=== PATIENT | male | born 1940 | race Caucasian/White ===

== ENCOUNTER 2018-04-15 15:21 | Emergency (ER) | payer MEDICARE, OTHER ==
[~2018-04-15] VITALS: Ht 167.6 cm; Wt 83.2 kg
[~2018-04-15 15:21] MED LIST: ASCORBIC ACID500 MG PO; BYSTOLIC10 MG PO; CO Q-10200 MG PO; COUMADIN2.5 MG PO; EFFIENT10 MG PO; FISH OIL 1,2001 CAP PO; LIPITOR40 MG PO; LOVENOX40 MG/0.4 SC; LOVENOX80 MG/0.8 SC; MAG-OXIDE400 MG PO; OMEPRAZOLE40 MG PO; PEPCID20 MG PO; VITAMIN B-122500 MCG PO; VITAMIN C1000 MG PO; VITAMIN E400 UNI2 PO; ZETIA10 MG PO; ZYLOPRIM300 MG PO
[2018-04-15 15:37] VITALS: Ht 167.6 cm; Wt 83.2 kg
[2018-04-15] MEDS ORDERED: PLAVIX75 MG PO (15:41)
[2018-04-15] MEDS ORDERED: NORCO 7.5/325 T1 TA1 PO (19:38)
[2018-04-15 20:06] VITALS: BP 155/62
== END 2018-04-15 20:26 | disposition home or self-care (01) ==
LOC: D.ER 15:21
DX: S92.002A Unspecified fracture of left calcaneus, initial encounter for closed fracture (principal); W11.XXXA Fall on and from ladder, initial encounter; Y93.89 Activity, other specified; Y92.89 Other specified places as the place of occurrence of the external cause; I10 Essential (primary) hypertension; I50.9 Heart failure, unspecified; I25.810 Atherosclerosis of coronary artery bypass graft(s) without angina pectoris; K21.9 Gastro-esophageal reflux disease without esophagitis; F17.200 Nicotine dependence, unspecified, uncomplicated

== ENCOUNTER 2019-03-11 12:51 | Inpatient (IN) | payer MEDICARE, OTHER ==
[~2019-03-11] VITALS: Ht 167.6 cm; Wt 73.5 kg
[~2019-03-11 12:51] MED LIST changes: +NORCO 7.5/325 T1 TA1 PO; +PLAVIX75 MG PO; +VITAMIN B-122500 MCG; -VITAMIN B-122500 MCG PO
--- NOTE | 2019-03-11 13:16 | NUR ---
WALKED BY ROOM AND SEEN ADMISSIONS PLACING PATIENT IN ROOM. PATIENT ARRIVED BY WHEELCHAIR AND ADMITTED TO ROOM 2826.
[2019-03-11] MEDS ORDERED: ZINC-220220 MG PO (13:34)
[2019-03-11] MEDS ORDERED: NORVASC5 MG PO (13:41)
[2019-03-11 14:14] LABS: HEMATOCRIT 28.4 % (42.0-54.0); HEMOGLOBIN 9.8 g/dL (13.5-17.5)
[2019-03-11 14:32] LABS: INR 1.08 (0.85-1.17)
[2019-03-11 14:33] LABS: ALBUMIN 3.2 g/dL (3.4-5.0); ANION GAP 12.9 mmol/L (8-16); APTT 38.4 SECONDS (22.8-39.4); BILIRUBIN - TOTAL 0.47 mg/dL (0.2-1.3); CALCIUM 9.2 mg/dL (8.5-10.1); CARBON DIOXIDE 28.6 mmol/L (21.0-32.0); CREATININE - SERUM 1.5 mg/dL (0.6-1.3); POTASSIUM - SERUM 4.5 mmol/L (3.5-5.1); PROTEIN - SERUM 8.1 g/dL (6.4-8.2)
--- NOTE | 2019-03-11 14:42 | NUR ---
20 GAUGE IV PLACED TO LEFT HAND X 1 STICK. GOOD BLOOD RETURN, EASY FLUSH, TOLERATED IV PLACEMENT WELL. TAPED, DATED,AND SECURED. IV FLUIDS INFUSING ORDERED AT THIS TIME. NO DISTRESS.
[2019-03-11 15:26] VITALS: BP 155/73
[2019-03-11 15:54] VITALS: BP 151/66; BMI 25.8
--- NOTE | 2019-03-11 17:52 | NUR ---
CONSENTS SIGNED AND ON THE CHART FOR EGD IN AM.
--- NOTE | 2019-03-11 19:20 | NUR ---
BED IS LOW AND LOCKED IV RUNNINING. NS AT 75 AND PROTONIX GTT IS ALSO RUNNING.CALL LIGHT IS IN REACH ...LCTA SKIN WARM AND DRY BOWEL SOUNDS TIMES 2 AND PULSES ARE INTACT. IS ALSO AT BEDSIDE
[2019-03-11 20:08] LABS: APPEARANCE CLEAR (CLEAR); BILIRUBIN NEGATIVE (NEGATIVE); COLOR YELLOW (YELLOW); GLUCOSE NEGATIVE (NEGATIVE); KETONE NEGATIVE (NEGATIVE); NITRITE NEGATIVE (NEGATIVE); PROTEIN TRACE mg/dL (NEGATIVE); SPECIFIC GRAVITY 1.015 (1.005-1.020); UROBILINOGEN NORMAL (NORMAL)
[2019-03-11 21:27] VITALS: BP 149/65
[2019-03-11 21:56] LABS: HEMATOCRIT 27.8 % (42.0-54.0); HEMOGLOBIN 9.5 g/dL (13.5-17.5)
[2019-03-12 00:38] VITALS: BP 133/63
[2019-03-12 05:36] LABS: BASOPHILS 0.3 % (0-2); EOSINOPHILS 4.5 % (0-7); HEMATOCRIT 28.6 % (42.0-54.0); HEMOGLOBIN 9.6 g/dL (13.5-17.5); IMMATURE GRANULOCYTES 0.2 % (0-5); LYMPHOCYTES 16.1 % (15-50); MCHC 33.6 g/dL (31.0-37.0); MCV 89.4 fL (80.0-100.0); MEAN PLATELET VOLUME 9.3 fL (7.4-10.4); MONOCYTES 9.7 % (2-11); NEUTROPHILS 69.2 % (40-80); RDW 14.3 % (11.5-14.5); WBC 8.9 10x3/uL (4.8-10.8)
[2019-03-12 05:40] LABS: PLATELET COUNT 190 10x3/uL (130-400)
[2019-03-12 06:15] VITALS: BP 163/75
[2019-03-12 06:29] LABS: ALBUMIN 2.8 g/dL (3.4-5.0); BILIRUBIN - TOTAL 0.45 mg/dL (0.2-1.3); CALCIUM 8.9 mg/dL (8.5-10.1); CARBON DIOXIDE 27.5 mmol/L (21.0-32.0); CREATININE - SERUM 1.4 mg/dL (0.6-1.3); POTASSIUM - SERUM 4.5 mmol/L (3.5-5.1); PROTEIN - SERUM 7.6 g/dL (6.4-8.2)
--- NOTE | 2019-03-12 08:00 | NUR ---
AM ROUNDS COMPLETED. INTRODUCED MYSELF TO PT PRIMARY RN FOR TODAYS SHIFT. PT IS A&O SITTING UP IN BED RESTING QUIETLY. SHIFT ASSESSMENT COMPLETED. PT IS NPO FOR EGD LATER TODAY AND VERBALIZED UNDERSTANDING. PT HAS PROTONIX DRIP INFUSING @10ML/HR VIA L.HAND PIV ALONG WITH NS @75ML/HR. PT DENIES ANY CURRENT PAIN OR NEEDS AT THIS TIME AND IS JUST RESTING QUIETLY. PT STATES HE IS HOPING TO BE DISCHARGED AFTER PROCEDURE TODAY. WILL DISCUSS WITH PRIMARY AND CPOC.
[2019-03-12 08:03] VITALS: BP 143/64
--- NOTE | 2019-03-12 11:31 | NUR ---
PT STILL WAITING QUIETLY FOR PROCEDURE PT IS IN GOWN AND READY. NO CURRENT NEEDS. WILL CTM.
[2019-03-12 11:50] VITALS: BP 145/64
[2019-03-12 13:52] VITALS: Ht 167.6 cm; Wt 73.5 kg
[2019-03-12 14:28] LABS: HEMATOCRIT 29.3 % (42.0-54.0)
--- NOTE | 2019-03-12 14:40 | NUR ---
PT VERY AGITATED R/T BEING NPO AND NOT HAVING PROCEDURE YET. CALLED GI LAB TO CHECK ON POSSIBLE TIME AND THEY STATE WILL BE HERE AFTER 4PM. PT VOICED THANKS FOR THE UPDATE AND DENIES ANY CURRENT PAIN OR NEEDS AT THIS TIME. CL IN REACH. WILL CTM.
[2019-03-12 15:05] VITALS: BP 156/63
--- NOTE | 2019-03-12 16:07 | NUR ---
GI LAB CALLED TO PRE-OP PT. PRE-OP MEDICATIONS GIVEN ORDERED. PT IS READY TO GO AND VERY ANXIOUS TO GET IT OVER WITH AND STATES HE STILL HOPES TO BE DISCHARGED AFTERWARDS. NO FURTHER NEEDS AT THIS TIME. WILL CTM.
--- NOTE | 2019-03-12 17:00 | NUR ---
EKG PERFORMED ORDERED.
--- NOTE | 2019-03-12 17:59 | NUR ---
PT FINALLY LEAVING FOR PROCEDURE AT THIS TIME. WILL CTM.
--- NOTE | 2019-03-12 18:30 | NUR ---
PT BACK FROM PROCEDURE A&O AND READY TO GET DRESSED AND DISCHARGED. VSS AND WILL MONITER UNTIL DISCHARGE. AT BEDSIDE. NO CURRENT NEEDS.
[2019-03-12] MEDS ORDERED: CARAFATE1 G PO (18:41)
[2019-03-12] MEDS ORDERED: PROTONIX40 MG PO (18:41)
--- NOTE | 2019-03-12 18:43 | NUR ---
CALLED AND DISCUSSED FINDINGS WITH PTS AND MYSELF AND PT IS OKAY TO DISCHARGE WITH NEW MEDICATIONS. WILL CALL THEM INTO [facility] REQUESTED.
--- NOTE | 2019-03-12 19:14 | NUR ---
D/C PTS PIV WITH CATHETER TIP FULLY INTACT. DISCHARGE TEACHING PROVIDED AND PAPERS SIGNED. TELEMETRY RETURNED TO [employer]. ALL BELONGINGS COLLECTED. NO FURTHER NEEDS. PT LEAVING NOW.
--- NOTE | 2019-03-13 10:05 | MORECARE ---
CASE MANAGEMENT DISCHARGE SUMMARY PATIENT: APARNA ZAMORA UNIT: [id number] ADM DATE: 03/11/19 AGE: 78 : 41 SEX: M ROOM/BED: D.2136 AUTHOR: MARTY MCNEIL PHYSICIAN: REFERRING PHYSICIAN: GLORIA REZA DO DATE OF SERVICE: 03/13/19 Discharge Plan Patient Name: APARNA ZAMORA [facility] [facility] 1940 Planned Disposition: Home Anticipated Discharge Date: 03/12/19 Discharge Date: 03/12/2019 Expected LOS: 1 Initial Reviewer: [email or web address] Initial Review Date: 03/13/2019 Generated: 03/13/19 11:05 am Patient Name: APARNA ZAMORA Page [id number] at 1005 All edits/amendments must be made on the electronic document DICTATION DATE: 03/13/19 1004 INSURANCE PREMIUM AUDITOR: JACQUELINE 03/13/19 1004 RPT#: [id number] DC DATE:03/12/19 STATUS: DIS IN [facility] [address] [place] [address] END OF REPORT
--- NOTE | 2019-03-14 13:43 | HP ---
PATIENT: APARNA ZAMORA MEDICAL RECORD: [id number] ACCOUNT: [id number] LOCATION:[address] : [birth year] ADMISSION DATE: 03/11/19 PCP: GLORIA REZA DO HISTORY AND PHYSICAL EXAMINATION HISTORY OF PRESENT ILLNESS: A 78-year-old white male that comes in today not feeling well. He recently underwent coronary artery bypass grafting, was seen in followup about a week ago and noted to be slightly anemic at 10.9. It was unsure whether this was close to what he was discharged at. He did complain of some dark stools. Guaiac was slightly positive at that time. He comes in today for followup. He has continued to have some black tarry stools. He is now experiencing some upper abdominal pain and his hemoglobin has dropped to 10.3. Due to his recent CABG, I feel that this needs to be aggressively worked up. He spoke with Dr. Banegas, he is going to be admitted for further evaluation and probable EGD. 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 PAST SURGICAL HISTORY: Include a colonoscopy in 2015, stents in 2013 and 2014, had a valve replaced in 2012, had a bypass done in 2012, had another bypass done here recently in 2019. ALLERGIES OR INTOLERANCES: INCLUDE LIPITOR. HOME MEDICATIONS: Significant for allopurinol 300 mg a day, famotidine 20 mg at bedtime, Zetia 10 mg a day, Plavix 75 mg a day, pravastatin 20 mg a day, vitamin E and C, magnesium, garlic, a baby aspirin a day, D3, B12, fish oil, CoQ10, and cinnamon. He also takes nitroglycerin on a p.r.n. basis. FAMILY HISTORY: Significant for coronary disease. SOCIAL HISTORY: Significant for previous smoking history. REVIEW OF SYSTEMS: Significant for fatigue. He has a little bit of inspirational chest pain on the right. His chest x-ray in the office that day that showed a small pleural effusion in the posterior gutter. He is a little short of breath but not too much above baseline. He got some epigastric abdominal pain, dark black stools. Denies any dysuria. He had had some fatigue. No syncope. PHYSICAL EXAMINATION: GENERAL: He is in no acute distress at this time. He looks a little tired. HEENT: Sclerae nonicteric. Mucous membranes are moist. HEART: Regular. LUNGS: Clear. ABDOMEN: Soft. There is some epigastric tenderness. Healing incision in the anterior chest wall. EXTREMITIES: Lower extremities reveal minimal edema. IMPRESSION: 1. Suspect upper gastrointestinal bleed with drop in hemoglobin and hematocrit and black stools. 2. Previous esophagogastroduodenoscopy and colonoscopy in 2016. HISTORY AND PHYSICAL [id number] APARNA ZAMORA 3. Coronary artery disease with recent coronary artery bypass graft. 4. Hypertension. 5. History of atrial fibrillation, currently on aspirin and Plavix. 6. Gout. 7. Gastroesophageal reflux disease. 8. Hyperlipidemia. 9. Hypertension. PLAN: Called and discussed with Dr. Banegas. Clear liquids for now. Hold Plavix and aspirin. Started a PPI drip or a pantoprazole drip. Serial H&Hs, type and screen, probable EGD. See orders for rest of the plan. TRANSINT:[id number] Voice Confirmation ID: [id number] DOCUMENT ID: [id number] GLORIA REZA DO at 1343 CC: [id number] DICTATION DATE: 03/11/192127 AIRFIELD MANAGER: 03/11/19 2330 DIS IN 03/12/19 [id number] [place] [address]
== END 2019-03-12 19:15 | disposition home or self-care (01) | DRG 391 ==
LOC: D.SDCHOLD 12:51 → D.M2 13:04
PROVIDERS: Family Medicine Adult Medicine; Internal Medicine Gastroenterology; ADMIT Family Medicine; ATTEND Family Medicine
PROC: 0DB68ZX Excision of Stomach, Via Natural or Artificial Opening Endoscopic, Diagnostic (ICD-10-PCS; 2019-03-12)
PROC: 0DB58ZX Excision of Esophagus, Via Natural or Artificial Opening Endoscopic, Diagnostic (ICD-10-PCS; principal; 2019-03-12 18:00)
DX: K22.8 Other specified diseases of esophagus (principal); K25.4 Chronic or unspecified gastric ulcer with hemorrhage; K21.0 Gastro-esophageal reflux disease with esophagitis; D64.9 Anemia, unspecified; I25.10 Atherosclerotic heart disease of native coronary artery without angina pectoris; I10 Essential (primary) hypertension; E78.5 Hyperlipidemia, unspecified; K44.9 Diaphragmatic hernia without obstruction or gangrene; K22.2 Esophageal obstruction

== ENCOUNTER → 2019-03-25 09:26 | Outpatient (CLI) | payer MEDICARE, OTHER ==
[2019-03-12 13:52] VITALS: BMI 26.1
[~2019-03-25 09:26] MED LIST changes: +CARAFATE1 G PO; +NORVASC5 MG PO; +PROTONIX40 MG PO; +ZINC-220220 MG PO
== END | disposition home or self-care (01) ==
LOC: D.CT 09:26
PROVIDERS: ATTEND Internal Medicine Gastroenterology
DX: D00.1 Carcinoma in situ of esophagus (principal)

== ENCOUNTER 2019-04-01 11:10 | Day surgery (SDC) | payer MEDICARE, OTHER ==
[~2019-04-01] VITALS: Ht 167.6 cm; Wt 75.5 kg
[2019-04-01 11:43] LABS: BASOPHILS 0.3 % (0-2); HEMOGLOBIN 10.1 g/dL (13.5-17.5); IMMATURE GRANULOCYTES 0.3 % (0-5); LYMPHOCYTES 24.2 % (15-50); MCHC 33.7 g/dL (31.0-37.0); MEAN PLATELET VOLUME 9.1 fL (7.4-10.4); MONOCYTES 9.7 % (2-11); NEUTROPHILS 59.5 % (40-80); PLATELET COUNT 162 10x3/uL (130-400); RBC 3.37 10x6/uL (4.20-6.10); RDW 15.1 % (11.5-14.5); WBC 6.2 10x3/uL (4.8-10.8)
[2019-04-01 11:52] LABS: ANION GAP 11.2 mmol/L (8-16); CALCIUM 9.4 mg/dL (8.5-10.1); CARBON DIOXIDE 29.4 mmol/L (21.0-32.0); CREATININE - SERUM 1.4 mg/dL (0.6-1.3); POTASSIUM - SERUM 4.6 mmol/L (3.5-5.1)
[2019-04-01] MEDS ORDERED: BAYER CHEWABLE81 MG PO (12:25)
[2019-04-01 12:33] LABS: INR 1.1 (0.85-1.17); PROTIME 13.7 SECONDS (11.6-15.0)
[2019-04-01 13:06] VITALS: BP 153/69; Ht 167.6 cm; Wt 75.5 kg
--- NOTE | 2019-04-01 13:53 | NUR ---
1350 DR. CARRILLO INFORMED OF CR 1.4 WITH FLAG OF GIVING GENTAMICIN 80MG WITH CR > 1.3. STATES MAY GIVE GENTAMICIN 80MB IVPB PREOP. ALSO INFORMED OF HGB 10.0 & HCT 30.0. STATES THAT IS OKAY FOR PROCEDURE. Hailey SCHAEFFER R.N.
--- NOTE | 2019-04-01 17:46 | NUR ---
1700 DR. LORENA ARANGO, GIVES RESULTS. 1720 IV DC'D WITH CATH INTACT MEDS GIVEN PER EMAR PT STATES READY FOR RELEASE GETTING READY FOR RELEASE.
--- NOTE | 2019-04-06 14:09 | OP ---
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 PROCEDURE: Esophagogastroduodenoscopy with esophageal biopsies. SURGEON: Isidoro Carrillo MD RESIN REMOVER: None. BLOOD LOSS: About 75 cc. The risks, possible complications, and alternatives to the procedure were explained to the patient. He elects to proceed. The discussion specifically included, but was not limited to, bleeding requiring emergency reoperation, infection, endoscopic perforation. OPERATIVE COURSE: The patient was conveyed to the endoscopy suite electively on 04/01/2019. IV sedation was induced by the anesthesia staff. A bite block was inserted. A gastroscope was inserted into the mouth and was advanced easily into the hypopharynx. The esophagus was easily intubated as were the stomach and duodenum. The esophageal mass was firm and encompassed a third of the circumference of the esophagus and was located posteriorly. It was from 30 cm from the incisors to 35 cm from the incisors, so it is 5 cm in length. The stomach was easily intubated as was the duodenum. Upon withdrawal, retroflexed and angulus views were obtained. I then began to obtain numerous esophageal biopsies. The patient vomited some blood. We suctioned his mouth. He had some desaturations. I removed the gastroscope and we had to bag valve mask ventilate the patient in order to get the saturations up. Once the sats were in the 90s without ventilatory efforts on our part, I re-endoscoped the patient's esophagus to see if I could stop the bleeding with the argon plasma electronic scale tester. I began to utilize the argon plasma electronic scale tester with esophageal setting in the forced mode. There was a good bit of clotted blood overlying the area in question. The patient had another episode of vomiting blood and we decided to discontinue the procedure at that time. The patient required further bag valve mask ventilation and was able to be weaned off his oxygen and then transferred back to his room. TRANSINT:[id number] Voice Confirmation ID: [id number] DOCUMENT ID: [id number] ISIDORO CARRILLO MD at 1409 CC: ISHMAEL NAIDU MD and GLORIA REZA [id number] DICTATION DATE: 04/01/19 1642 CREDIT COLLECTOR: 04/01/19 1840 [facility] 04/01/19 [address] [place] [address]
--- NOTE | 2019-04-06 14:09 | HP ---
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 HISTORY OF PRESENT ILLNESS: The patient underwent EGD by Dr. Banegas. This revealed an esophageal biopsy, which reviewed minute squamous mucosa with at least squamous cell carcinoma in situ. A definite invasive neoplasm could not be determined due to the minute nature of the specimen. I have outlined with him the risks of the procedure as well as esophagectomy. He is willing to accept the risk of trying to undergo this procedure first to determine whether this esophageal neoplasm is invasive or not. I told him that if it is, then he would require an esophagectomy. 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 ALLERGIES: No known drug allergies. PHYSICAL EXAMINATION: GENERAL: The patient does not appear acutely ill. He does not appear chronically ill. VITAL SIGNS: Reviewed. EARS: He is hard of hearing. PSYCHIATRIC: Normal affect. NEUROLOGIC: Nonfocal except for hard of hearing. IMPRESSION: Carcinoma in situ of the esophagus. PLAN: EGD biopsies, possible endoscopic mucosal resection, possible treatment with the argon plasma inventory representative. TRANSINT:[id number] Voice Confirmation ID: [id number] DOCUMENT ID: [id number] ISIDORO CARRILLO MD at 1409 CC: ISHMAEL BANEGAS MD and GLORIA REZA [id number] DICTATION DATE: 04/01/19 1547 AGRISCIENCE TEACHER: 04/01/19 1559 [facility] 04/01/19 [id number] [place] [id number]
== END 2019-04-01 17:30 | disposition home or self-care (01) ==
LOC: D.OPS 11:10
PROVIDERS: Anesthesiology; ATTEND Surgery
DX: D12.5 Benign neoplasm of sigmoid colon (principal); D00.1 Carcinoma in situ of esophagus; Z95.2 Presence of prosthetic heart valve; K21.9 Gastro-esophageal reflux disease without esophagitis; Z86.73 Personal history of transient ischemic attack (TIA), and cerebral infarction without residual deficits; I10 Essential (primary) hypertension; I25.10 Atherosclerotic heart disease of native coronary artery without angina pectoris; Z01.812 Encounter for preprocedural laboratory examination

== ENCOUNTER 2019-04-18 10:32 | Day surgery (SDC) | payer MEDICARE, OTHER ==
[~2019-04-18] VITALS: Ht 167.6 cm; Wt 78.5 kg
[~2019-04-18 10:32] MED LIST changes: +BAYER CHEWABLE81 MG PO
[2019-04-18 10:59] LABS: BASOPHILS 0.1 % (0-2); EOSINOPHILS 0.2 % (0-7); HEMATOCRIT 31.4 % (42.0-54.0); HEMOGLOBIN 10.6 g/dL (13.5-17.5); IMMATURE GRANULOCYTES 0.2 % (0-5); LYMPHOCYTES 15.2 % (15-50); MCH 29.5 pg (26.0-34.0); MCHC 33.8 g/dL (31.0-37.0); MCV 87.5 fL (80.0-100.0); MEAN PLATELET VOLUME 9.8 fL (7.4-10.4); MONOCYTES 5.7 % (2-11); NEUTROPHILS 78.6 % (40-80); PLATELET COUNT 158 10x3/uL (130-400); RBC 3.59 10x6/uL (4.20-6.10); RDW 15.4 % (11.5-14.5); WBC 9.2 10x3/uL (4.8-10.8)
[2019-04-18 11:06] LABS: CARBON DIOXIDE 30.2 mmol/L (21.0-32.0); CREATININE - SERUM 1.2 mg/dL (0.6-1.3); POTASSIUM - SERUM 4.2 mmol/L (3.5-5.1)
[2019-04-18 11:45] VITALS: BP 153/62; Ht 167.6 cm; Wt 78.5 kg
[2019-04-18 11:51] LABS: INR 1.06 (0.85-1.17); PROTIME 13.3 SECONDS (11.6-15.0)
[2019-04-18 11:52] LABS: APTT 30.2 SECONDS (22.8-39.4)
--- NOTE | 2019-04-28 12:59 | OP ---
PATIENT NAME: APARNA ZAMORA MEDICAL RECORD: [id number] :42 LOCATION:D.OPS ADMISSION DATE: SURGEON: LOW CARRILLO MD DATE OF OPERATION: 04/18/2019 PREOPERATIVE DIAGNOSIS: Squamous cell carcinoma of the esophagus. POSTOPERATIVE DIAGNOSIS: Squamous cell carcinoma of the esophagus. PROCEDURES: 1. Esophagogastroduodenoscopy with endoscopic placement of a partially covered esophageal stent under fluoroscopy. 2. Immediate surgeon interpretation of the fluoroscopic images. SURGEON: Low Carrillo MD ROLL OUT MANAGER: None. BLOOD LOSS: Minimal. ANESTHESIA: General. COMPLICATIONS: None. Attending radiologist was present for this procedure. Static fluoroscopic images were obtained. These are kept in the PACS system. The surgeon interpretation of the radiographic images is dictated within the body of this operative note. The risks, possible complications, and alternatives to the procedure were explained to the patient. He elects to proceed. The discussion specifically included, but was not limited to, bleeding requiring emergency reoperation, stent migration, and hematemesis. OPERATIVE COURSE: The patient was conveyed to the operating room electively on 04/18/2019. General anesthesia was induced by the anesthesia staff. A bite block was inserted. A gastroscope was inserted into the mouth. It was advanced easily into the hypopharynx. The esophagus was easily intubated as were the stomach and duodenum. Upon withdrawal, retroflexed and angulus views were obtained. I then advanced into the duodenum. Under fluoroscopy, I advanced a 0.035 Jagwire. This was visualized under fluoroscopy, I was able to get it to advance this all the way down into the jejunum. I then withdrew the gastroscope over the Jagwire. Upon withdrawal, I marked the patient's skin at the proximal and distal extent of the carcinoma. I marked this with metallic clips. I then continued withdrawal of the gastroscope over the Jagwire without dislodging the Jagwire. I then loaded a well-lubricated partially covered esophageal stent on the Jagwire. This was advanced under fluoroscopy and then deployed. I was very satisfied with the deployment. It appeared that the covered portion of the stent covered the carcinoma very nicely. I was very OPERATIVE REPORT [id number] APARNA ZAMORA pleased with the proximal and distal targets for the uncovered portion of the stent. I re-endoscoped the patient's esophagus and stomach. I then withdrew the gastroscope without dislodging the stent. The stent is in place in order to help prevent dysphagia should there be either a radiation stricture or a continued growth of the malignancy where it causes near or partial obstruction of the esophagus. Additionally, the covered portion of the stent will aid in targeting the radiation as this is not an EG junction malignancy nor is a very proximal malignancy. The patient was then extubated and conveyed to the post-anesthesia care unit. A subsequent KUB was somewhat worrisome for some distal migration of the stent already. PLAN: I will plan on getting a KUB in a week or two to see us if there has been an interval development of any migration. TRANSINT:[id number] Voice Confirmation ID: [id number] DOCUMENT ID: [id number] LOW CARRILLO MD at 1259 CC: TU HASSAN [id number] DICTATION DATE: 04/26/19 1700 OPERATIONS AND INTELLIGENCE ASSISTANT: 04/26/192108 [facility] 04/18/19 [facility] [address] [place] [address]
== END 2019-04-18 16:11 | disposition home or self-care (01) ==
LOC: D.OPS 10:32 → D.PAN 13:00 → D.OPS 16:11
PROVIDERS: Anesthesiology; ATTEND Surgery
DX: C15.9 Malignant neoplasm of esophagus, unspecified (principal)

== ENCOUNTER → 2019-04-24 15:13 | Outpatient (CLI) | payer MEDICARE, OTHER ==
[2019-04-18 11:45] VITALS: BMI 27.9
== END | disposition home or self-care (01) ==
LOC: D.RAD 15:13
PROVIDERS: ATTEND Surgery
DX: D00.1 Carcinoma in situ of esophagus (principal)

== ENCOUNTER 2019-04-29 10:29 | Day surgery (SDC) | payer MEDICARE, OTHER ==
[2019-04-29 10:47] LABS: BASOPHILS 0.3 % (0-2); EOSINOPHILS 3.3 % (0-7); HEMATOCRIT 28.7 % (42.0-54.0); HEMOGLOBIN 9.8 g/dL (13.5-17.5); IMMATURE GRANULOCYTES 0.3 % (0-5); LYMPHOCYTES 19.7 % (15-50); MCH 29.8 pg (26.0-34.0); MCHC 34.1 g/dL (31.0-37.0); MCV 87.2 fL (80.0-100.0); MEAN PLATELET VOLUME 9.2 fL (7.4-10.4); MONOCYTES 5.7 % (2-11); NEUTROPHILS 70.7 % (40-80); PLATELET COUNT 138 10x3/uL (130-400); RBC 3.29 10x6/uL (4.20-6.10); RDW 15.5 % (11.5-14.5)
[2019-04-29 10:56] LABS: ANION GAP 13.2 mmol/L (8-16); APTT 30.2 SECONDS (22.8-39.4); CALCIUM 9.2 mg/dL (8.5-10.1); CARBON DIOXIDE 29.5 mmol/L (21.0-32.0); CREATININE - SERUM 1.1 mg/dL (0.6-1.3); INR 0.99 (0.85-1.17); POTASSIUM - SERUM 4.7 mmol/L (3.5-5.1); PROTIME 12.6 SECONDS (11.6-15.0)
[2019-04-29 12:50] VITALS: BP 169/68; BMI 27.9
--- NOTE | 2019-04-29 17:09 | NUR ---
PT DC INSTRUCTIONS REVEIWED AT THIS TIME, PT VERBALIZES UNDERSTANDING AND AGREES. PT IV REMOVED AT THIS TIME, INTACT, NO REDNESS OR SWELLING NOTED.
--- NOTE | 2019-04-29 18:51 | NUR ---
1635 REPORT RECIEVED FROM ÁNGELA Bowser PT DRESSED AND TO HOME IN W/C
--- NOTE | 2019-05-06 11:07 | HP ---
PATIENT: APARNA ZAMORA MEDICAL RECORD: [id number] ACCOUNT: [id number] LOCATION:[place] : 42 ADMISSION DATE: 04/29/19 PCP: GLORIA REZA DO HISTORY AND PHYSICAL EXAMINATION CHIEF COMPLAINT: Stent migration. HISTORY OF PRESENT ILLNESS: The patient has esophageal carcinoma. He does not want to undergo esophagectomy. He is to undergo radiation therapy. I placed an esophageal stent. It has migrated. I am going to try to reposition it today. PAST MEDICAL AND SURGICAL HISTORY: Esophageal carcinoma, coronary artery disease, hypertension, CABG times 4. HOME MEDICATIONS: Please see the nursing list. ALLERGIES: No known drug allergies. PHYSICAL EXAMINATION: GENERAL: The patient does not appear acutely ill. He does not appear chronically ill. VITAL SIGNS: Reviewed. EARS: External ears appear normal. EYES: Extraocular movements are intact. NECK: Trachea is midline. CHEST: No intercostal retractions. PULMONARY: Nonlabored and no stridor. IMPRESSION: Esophageal cancer, to undergo radiation therapy, now with a migrated stent. PLAN: EGD with repositioning of stent. TRANSINT:[id number] Voice Confirmation ID: [id number] DOCUMENT ID: [id number] 05/05/2019 Edited for recreation therapy teacher error, dmm. ISIDORO CARRILLO MD at 1107 CC: ISHMAEL NAIDU MD, KEVIN CORMIER MD, GLORIA REZA and [id number] DICTATION DATE: 04/29/19 1551 SURFACE LOGGING SYSTEMS LOGGER: 04/29/19 1630 [facility] 04/29/19 [facility] [address] [place] [id number]
--- NOTE | 2019-05-09 17:12 | OP ---
PATIENT NAME: APARNA ZAMORA MEDICAL RECORD: [id number] :42 LOCATION:D.OPS ADMISSION DATE: SURGEON: ISIDORO CARRILLO MD DATE OF OPERATION: 04/29/2019 PREOPERATIVE DIAGNOSES: 1. Esophageal cancer. 2. Distal migration of esophageal stent. POSTOPERATIVE DIAGNOSES: 1. Esophageal cancer. 2. Distal migration of esophageal stent. PROCEDURE: Esophagogastroscopy with endoscopic repositioning of esophageal stent. SURGEON: Isidoro Carrillo MD CUSTOMER OPERATIONS INTERN: None. BLOOD LOSS: Less than 25 cc. ANESTHESIA: IV sedation. COMPLICATIONS: None. The risks, possible complications, and alternatives to the procedure were explained to the patient. He elects to proceed. ENDOSCOPIC COURSE: The patient was conveyed to endoscopy suite electively on 04/29/2019. IV sedation was induced by the anesthesia staff. A bite block was inserted. A gastroscope was inserted into the mouth. It was advanced easily into the hypopharynx. The esophagus was easily intubated as was the stomach. I did not intubate the duodenum. On retroflexed view, I could see that the stent had migrated significantly. I then unretroflexed the scope. I withdrew it out to the top of the stent. I grasped the repositioning string. I then was able to pull the stent cephalad so that it covered up the malignancy. I then re-endoscoped the patient's stomach. On retroflexed view, the uncovered portion of the stent was at the EG junction, which is just about perfect for him. I then unretroflexed the scope. I withdrew it into the proximal esophagus. It appeared that the entire malignancy had been covered by the covered portion of the stent. In order to prevent the stent from migrating, I placed 4 endoscopic clips, one at each quadrant, clipping the stent to the esophagus with these clips. The endoscope was then withdrawn under direct vision. The patient was then conveyed back to his room. A portable chest x-ray is pending. TRANSINT:[id number] Voice Confirmation ID: [id number] DOCUMENT ID: [id number] 05/05/2019 Edited for ruby software developer error, [email or web address]. OPERATIVE REPORT [id number] APARNA ZAMORA ISIDORO CARRILLO MD at 1712 CC: ISHMAEL NAIDU MD, KEVIN CORMIER MD, GLORIA REZA and [id number] DICTATION DATE: 04/29/19 1625 GENERAL PEDIATRICIAN: 04/29/19 1836 [facility] 04/29/19 [id number] [place] [address]
== END 2019-04-29 17:30 | disposition home or self-care (01) ==
LOC: D.OPS 10:29
PROVIDERS: Anesthesiology; ATTEND Surgery
DX: D00.1 Carcinoma in situ of esophagus (principal); T85.628A Displacement of other specified internal prosthetic devices, implants and grafts, initial encounter; Z01.812 Encounter for preprocedural laboratory examination

== ENCOUNTER 2019-05-13 09:10 | Day surgery (SDC) | payer MEDICARE, OTHER ==
[~2019-05-13] VITALS: Ht 167.6 cm; Wt 78.5 kg
--- NOTE | ~2019-05-13 | OP ---
PATIENT NAME: APARNA ZAMORA MEDICAL RECORD: [id number] :42 LOCATION:D.OPS ADMISSION DATE: SURGEON: ISIDORO CARRILLO MD DATE OF OPERATION: 05/13/2019 PREOPERATIVE DIAGNOSES: 1. Squamous cell carcinoma of the esophagus. 2. Symptomatic esophageal stent causing chest pain. POSTOPERATIVE DIAGNOSES: 1. Squamous cell carcinoma of the esophagus. 2. Symptomatic esophageal stent causing chest pain. PROCEDURE: Esophagogastroduodenoscopy with endoscopic retrieval of partially covered esophageal stent, placement of 4 endoscopic clips. SURGEON: Isidoro Carrillo MD ARTS ADMINISTRATOR OR MANAGER: None. ESTIMATED BLOOD LOSS: 25 cc. ANESTHESIA: IV sedation. COMPLICATIONS: None. The risks, possible complications, and alternatives to the procedure were explained to the patient. He elects to proceed. Discussion specifically included, but was not limited to, bleeding requiring emergency reoperation, infection, endoscopic perforation. OPERATIVE COURSE: The patient was conveyed to endoscopy suite electively on 05/13/2019. IV sedation was induced by the anesthesia staff. A bite block was inserted. A gastroscope was inserted into the mouth. It was advanced easily into the hypopharynx. The esophagus was easily intubated as were the stomach and duodenum. There was food material within the esophageal stent. A retroflexed view was obtained and it revealed no distal migration of the stent. I then withdrew into the cephalad portion of the stent. The string was identified. This was grasped with an endoscopic biopsy device. I then grabbed the suture and removed the stent in its entirety. I then reintubated the esophagus. There had been no evidence of false passage or perforation. At the distal aspect of what appeared to be the malignancy, I placed 2 clips. At the cephalad portion of what appeared to be the malignancy, 2 more endoscopic clips were placed. These were placed so that the radiation oncologist, Dr. Silva, can target his radiation field between these clips. The endoscope was then withdrawn under direct vision. The patient did have some hemoptysis and hematemesis after the procedure. This is resolving. TRANSINT:[id number] Voice Confirmation ID: [id number] DOCUMENT ID: [id number] OPERATIVE REPORT [id number] APARNA ZAMORA ISIDORO CARRILLO MD CC: ISHMAEL NAIDU MD, GLORIA REZA and TU SILVA [id number] DICTATION DATE: 05/13/19 1527 PEDIATRIC ONCOLOGIST: 05/13/19 1541 [facility] [address] [place] [address]
[2019-05-13 09:33] LABS: HEMATOCRIT 27.3 % (42.0-54.0); HEMOGLOBIN 9.5 g/dL (13.5-17.5); MCH 29.5 pg (26.0-34.0); MCHC 34.8 g/dL (31.0-37.0); MCV 84.8 fL (80.0-100.0); MEAN PLATELET VOLUME 8.4 fL (7.4-10.4); RBC 3.22 10x6/uL (4.20-6.10); RDW 16.9 % (11.5-14.5); WBC 3.6 10x3/uL (4.8-10.8)
[2019-05-13 09:44] LABS: ANION GAP 10.5 mmol/L (8-16); CALCIUM 9.2 mg/dL (8.5-10.1); CARBON DIOXIDE 30.3 mmol/L (21.0-32.0); CREATININE - SERUM 1.1 mg/dL (0.6-1.3); POTASSIUM - SERUM 3.8 mmol/L (3.5-5.1)
[2019-05-13 09:49] LABS: APTT 29.1 SECONDS (22.8-39.4); INR 1.05 (0.85-1.17); PROTIME 13.2 SECONDS (11.6-15.0)
[2019-05-13 10:12] VITALS: BP 154/74; Ht 167.6 cm; Wt 78.5 kg
--- NOTE | 2019-05-13 16:18 | NUR ---
1615 PT. REQUESTS I PHONE IN HIS RX INTO [facility] [address] WHICH I DID.
--- NOTE | 2019-05-13 16:38 | NUR ---
1635 IV DC'D WITH CATH INTACT DC INSTS GIVEN VOICED UNDERSTANDING GETTING DRESSED RELEASED IN WC.
--- NOTE | 2019-05-17 17:18 | HP ---
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 This patient had an esophageal stent placed. This was a partially covered stent. Clips were placed at the proximal aspect of the stent in order to keep it in place. The patient has had migration of one stent which had to be repositioned. He is now having intractable chest pain due to the dilation from the radial force of the stent. The stent was placed in order to cover the portion of the malignancy that was involved and it was to act as a target for radiation therapy. I am going to elect to remove the stent and then probably place endoscopic clips at the cephalad and caudad most portion of the malignancy so that the malignancy can still be targeted during radiation therapy. I have discussed this personally with Dr. Silva. SOCIAL HISTORY: Nonsmoker. PAST MEDICAL AND SURGICAL HISTORY: CABG times 4, history of 4 coronary stents, history of gastroesophageal reflux which is controlled, history of esophageal malignancy, and coronary artery disease. HOME MEDICATIONS: Please see the nursing list. He last took his Eliquis 4 days ago. ALLERGIES: No known drug allergies. PHYSICAL EXAMINATION: GENERAL: The patient does not appear acutely ill. He does not appear chronically ill. VITAL SIGNS: Reviewed and appeared normal. EYES: Extraocular movements are intact. NECK: Trachea is midline. CHEST: No intercostal retractions. PULMONARY: Nonlabored. No stridor. He does have a cough. IMPRESSION: Esophageal squamous cell cancer with symptomatic partially covered stent. PLAN: Removal of stent. Placement of clips as described above. TRANSINT:[id number] Voice Confirmation ID: [id number] DOCUMENT ID: [id number] HISTORY AND PHYSICAL [id number] NOAHAPARNA Mayda ISIDORO CARRILLO MD at [id number] CC: ISHMAEL NAIDU MD, GLORIA REZA and TU SILVA [id number] DICTATION DATE: 05/13/19 1440 EVENTS DIRECTOR: 05/13/19 1502 [facility] 05/13/19 [place] [id number] [place], [place] [id number]
== END 2019-05-13 16:50 | disposition home or self-care (01) ==
LOC: D.OPS 09:10
PROVIDERS: Anesthesiology; ATTEND Surgery
DX: C15.9 Malignant neoplasm of esophagus, unspecified (principal); R07.89 Other chest pain; Z01.812 Encounter for preprocedural laboratory examination

== ENCOUNTER → 2019-10-08 08:17 | Outpatient (CLI) | payer MEDICARE, OTHER ==
[2019-05-13 10:12] VITALS: BMI 27.9
== END | disposition home or self-care (01) ==
LOC: D.RAD 08:17
PROVIDERS: ATTEND Internal Medicine Gastroenterology
DX: K22.5 Diverticulum of esophagus, acquired (principal)